=== PATIENT | female | born 1975 | race Caucasian/White ===

== ENCOUNTER 2019-10-28 21:33 | Emergency (ER) | payer BC, MEDICAID ==
[~2019-10-28] VITALS: Ht 160 cm; Wt 100.3 kg
[2019-10-28 21:44] VITALS: BP 169/83
[2019-10-28] MEDS ORDERED: triamcinolone acetonide 40mg/ml inj IM ONE (23:10)
[2019-10-28] MEDS ORDERED: ketorolac tromethamine 15mg/ml inj. IM ONE (23:10)
[2019-10-28] MEDS ORDERED: proCHLORperazine 10 MG/2 ml inj IM ONE (23:10)
== END 2019-10-28 23:54 | disposition home or self-care (01) ==
LOC: ER 21:34
DX: G43.909 Migraine, unspecified, not intractable, without status migrainosus (principal); Z88.1 Allergy status to other antibiotic agents
CPT/HCPCS: 96372; 99284; J0780; J1885; J3301

== ENCOUNTER 2019-11-03 07:54 | Emergency (ER) | payer MEDICAID ==
[~2019-11-03] VITALS: Ht 160 cm; Wt 103.0 kg
[2019-11-03 07:57] VITALS: BP 142/86
[2019-11-03] MEDS ORDERED: LIDOcaine 1% 30ml preserv. free vial SQ STA (08:26)
[2019-11-03] MEDS ORDERED: haloperidol lactate 5mg/ml inj IM ONE (08:30)
[2019-11-03] MEDS ORDERED: LIDOcaine 40mg/ml topical solution MM ONE (08:50)
[2019-11-03] MEDS ORDERED: LORazepam 1 MG tablet PO ONE (09:20)
[2019-11-03] MEDS ORDERED: LORA-269 PO (09:37)
== END 2019-11-03 09:48 | disposition home or self-care (01) ==
LOC: ER 07:55
DX: G43.909 Migraine, unspecified, not intractable, without status migrainosus (principal); Z88.1 Allergy status to other antibiotic agents; Z88.5 Allergy status to narcotic agent
CPT/HCPCS: 96372; 99284; J1630; J2001; 99283

== ENCOUNTER 2019-11-21 12:40 | Emergency (ER) | payer MEDICAID ==
[~2019-11-21] VITALS: Ht 160 cm; Wt 105.0 kg
[~2019-11-21 12:40] MED LIST: LORA-269 PO
[2019-11-21] MEDS ORDERED: ketorolac trometh inj. 60 MG/2 ML VIAL IM ONE (13:35)
[2019-11-21 13:53] LABS: BASOPHILS # (AUTO) 0.1 X10'3 (0-0.2); BASOPHILS % (AUTO) 0.9 % (0-1); EOSINOPHILS # (AUTO) 0.2 X10'3 (0-0.9); EOSINOPHILS % (AUTO) 1.6 % (0-6); HEMATOCRIT 39.8 % (35.0-45.0); HEMOGLOBIN 12.9 g/dl (12.0-16.0); LYMPHOCYTES # (AUTO) 2.4 X10'3 (1.1-4.8); LYMPHOCYTES % (AUTO) 25.7 % (21-51); MEAN CORPUSCULAR HEMOGLOBIN 29.6 PG (27.0-31.0); MEAN CORPUSCULAR HGB CONC 32.5 g/dL (33.0-36.5); MEAN CORPUSCULAR VOLUME 91.1 FL (78-98); MEAN PLATELET VOLUME 7.6 FL (7.4-10.4); MONOCYTES # (AUTO) 0.5 X10'3 (0-0.9); MONOCYTES % (AUTO) 5.6 % (2-12); NEUTROPHILS # (AUTO) 6.2 X10'3 (1.8-7.7); NEUTROPHILS % (AUTO) 66.2 % (42-75); PLATELET COUNT 329 X10'3 (140-440); RED BLOOD COUNT 4.37 X10'6 (4.20-5.60); RED CELL DISTRIBUTION WIDTH 13.9 % (11.5-14.5); WHITE BLOOD COUNT 9.4 X10'3 (4.5-11.0)
[2019-11-21 14:06] LABS: ALANINE AMINOTRANSFERASE 19 U/L (12-78); ALBUMIN 3.1 G/DL (3.4-5.0); ALBUMIN/GLOBULIN RATIO 0.8 (1.1-1.5); ALKALINE PHOSPHATASE 95 IU/L (46-116); ANION GAP 8 (8-16); ASPARTATE AMINO TRANSFERASE 26 U/L (10-37); BILIRUBIN,TOTAL 0.4 MG/DL (0.1-1.0); BLOOD UREA NITROGEN 11 MG/DL (7-18); BUN/CREATININE RATIO 11.3 (6.6-38.0); CALCIUM 8.9 MG/DL (8.5-10.1); CHLORIDE 106 MMOL/L (99-107); CREATININE 0.97 MG/DL (0.40-0.90); GLUCOSE 109 MG/DL (70-104); POTASSIUM 4.2 MMOL/L (3.5-5.1); SODIUM 140 MMOL/L (135-145); TOTAL PROTEIN 7.2 G/DL (6.4-8.2); eGFR 62 ML/MIN
[2019-11-21 14:09] LABS: TROPONIN I < 0.04 NG/ML (0.0-0.05)
[2019-11-21 16:00] VITALS: BP 137/91
== END 2019-11-21 16:03 | disposition home or self-care (01) ==
LOC: ER 12:40
DX: G43.909 Migraine, unspecified, not intractable, without status migrainosus (principal); R42 Dizziness and giddiness; R20.2 Paresthesia of skin; R53.1 Weakness; Z88.1 Allergy status to other antibiotic agents; Z88.5 Allergy status to narcotic agent; Z88.8 Allergy status to other drugs, medicaments and biological substances; Z79.899 Other long term (current) drug therapy
CPT/HCPCS: 36415; 80053; 84484; 85025; 96372; 99284; J1885

== ENCOUNTER 2021-03-16 20:09 | Emergency (ER) | payer MEDICAID ==
[~2021-03-16] VITALS: Ht 160 cm; Wt 96.8 kg
[2021-03-16 20:15] VITALS: BP 157/100
[2021-03-16] MEDS ORDERED: AZIT-103 PO (21:04)
[2021-03-16] MEDS ORDERED: BENZ-38 PO (21:04)
[2021-03-16] MEDS ORDERED: DOXY100C77 PO (21:04)
[2021-03-16] MEDS ORDERED: ALBU8HFA PO (21:31)
== END 2021-03-16 21:37 | disposition home or self-care (01) ==
LOC: ER 20:12
DX: J20.9 Acute bronchitis, unspecified (principal); J32.9 Chronic sinusitis, unspecified; R05.9 Cough, unspecified; R07.89 Other chest pain; Z88.1 Allergy status to other antibiotic agents; Z88.5 Allergy status to narcotic agent; Z79.2 Long term (current) use of antibiotics; Z79.899 Other long term (current) drug therapy
CPT/HCPCS: 99283

== ENCOUNTER 2024-07-27 19:38 | Emergency (ER) | payer MEDICAID ==
[~2024-07-27] VITALS: Ht 160 cm; Wt 104.5 kg
[2024-07-27 20:34] VITALS: BP 126/49; PULSE 109; RESP 18; TEMP 98.3; O2SAT 98
== END 2024-07-27 20:37 | disposition home or self-care (01) ==
LOC: ER 19:40
DX: F44.5 Conversion disorder with seizures or convulsions (principal); Z88.0 Allergy status to penicillin; Z88.5 Allergy status to narcotic agent
CPT/HCPCS: 99283